=== PATIENT | male | born 1990 | race African-American/Black ===

== ENCOUNTER 2021-03-29 12:14 | Emergency (ER) | payer SELFPAY ==
[2021-03-29 12:24] VITALS: BP 119/74; PULSE 68; RESP 20; TEMP 36.6; O2SAT 98
--- NOTE | 2021-03-29 12:42 | ED.GENADULT ---
HPI - General Adult General Chief complaint: Medical Clearance Stated complaint: Ear Pain/Blood Pressure Problem Time Seen by Provider: 03/29/21 12:20 Source: patient Mode of arrival: ambulatory Limitations: no limitations History of Present Illness HPI narrative: 30 y/o AA male. PMHx none reported. Presents to [facility] today with acute complaints of RT side otalgia, worsening > the past 1 week. He reports associated [place] and elevated BP at home. No LOC, Focal weakness, chest pain, palpitations, dyspnea, edema. No N/V. He denies auditory loss or trauma. No additional acute c/o illness upon PE. Related Data Allergies Allergy/AdvReac Type Severity Reaction Status Date / Time peanut Allergy Unknown Rash Verified 03/29/21 12:34 Review of Systems Review of Systems: CONSTITUTIONAL: Denies fever, chills, sweats. EYES: Denies visual changes, redness, discharge. ENT: Denies rhinorrhea, congestion, sore throat. Positive RT otalgia. CARDIOVASCULAR: Denies chest pain, palpitations, edema. RESPIRATORY: Denies dyspnea, wheezing, cough GASTROINTESTINAL: Denies abdominal pain, nausea, vomiting, diarrhea. GENITOURINARY: Denies dysuria, hematuria, abnormal discharge SKIN: Denies rash or itching. MUSCULOSKELETAL: Denies acute back pain, joint pain, or myalgia. NEUROLOGIC: Denies numbness, or focal weakness. PSYCHIATRIC: Denies anxiety or depression. All systems reviewed & are unremarkable except as noted in HPI and below Exam Narrative: GENERAL: This is a well-nourished, well-developed adult, in no apparent distress. HEAD: normocephalic, atraumatic. EYES: PERRL. Sclera clear/white. EARS: External ears normal. RT auditory canal erythematous with bulging TM. Positive Tragus maneuver RT. No obstruction or TM perforation. No hearing deficits. LT normal. auditory canals clear and without drainage, TMs normal. NOSE: External nose normal. Positive Rhinorrhea, no obstruction, nares patent. THROAT: Mucous membranes moist, posterior pharynx clear. No exudates. NECK: Neck supple, non-tender without lymphadenopathy, masses or thyromegaly. CARDIOVASCULAR: Regular rate and rhythm without murmurs, gallops, or rubs. No edema. RESPIRATORY: Clear to auscultation. Breath sounds equal bilaterally. No wheezes, rales, or rhonchi. GASTROINTESTINAL: Abdomen soft, non-tender, nondistended. Bowel sounds are active. No guarding. SKIN: warm, intact with no suspicious lesions or rash, good texture and turgor. NEURO: Alert, active, and age appropriate. No focal neurologic deficits. Course Vital Signs Vital signs: Vital Signs Temperature 36.6 C 03/29/21 12:24 Pulse Rate 68 03/29/21 12:24 Respiratory Rate 20 03/29/21 12:24 Blood Pressure 119/74 03/29/21 12:24 Pulse Oximetry 98 03/29/21 12:24 Temperature 36.6 C 03/29/21 12:24 Pulse Rate 68 03/29/21 12:24 Respiratory Rate 20 03/29/21 12:24 Blood Pressure 119/74 03/29/21 12:24 Pulse Oximetry 98 03/29/21 12:24 Medical Decision Making MDM Narrative Medical decision making narrative: -OP POC, AVS, & Medication instructions reviewed. -No focal neurological deficits. -Advise Home BP Log TID X 2 weeks, as well as DASH diet and exercise regimen in regard to his concern for elevated BP at home. -PCP Referral and follow-up 1 week. May discuss additional care needs as deemed necessary at this time. -ER W/Emergent health status changes. Pt agrees. Differential Diagnosis Differential Diagnosis: Differential Diagnosis: Consideration of the following conditions may be warranted for the presenting problem, they are not final diagnoses: upper respiratory infection, otitis media, sinusitis, RSV viral infection, bronchitis, pharyngitis, Streptococcal sore throat, COVID-19, and other. Medical Records Medical records reviewed: Yes I reviewed the external patient's medical records. Vital Signs Vital Signs: Vital Signs Temperature 36.6 C 03/29/21 12:24 Pulse Rate 68
== END 2021-03-29 12:45 | disposition home or self-care (01) ==
PROVIDERS: Emergency Provider Nurse Practitioner Adult Health
DX: H66.91 Otitis media, unspecified, right ear (principal)
CPT/HCPCS: 99203; G0463

== ENCOUNTER 2023-07-14 18:28 | Emergency (ER) | payer SELFPAY ==
[2023-07-14 18:38] VITALS: BP 153/91; PULSE 74; RESP 16; TEMP 36.2; O2SAT 74
--- NOTE | 2023-07-14 18:44 | ED.GENADULT ---
HPI - General Adult General Chief complaint: Unspecified Stated complaint: blood pressure Time Seen by Provider: 07/14/23 18:44 Source: patient Mode of arrival: ambulatory Limitations: no limitations History of Present Illness HPI narrative: 32 yo M presents with c/o high BP. States he had headache today. his daughter is training to be nurse so checked his BP and told him it was elevated. Also reports hair bumps to munoz area for months . recently bought new esme to see if that would help. Does not have PCP. All systems reviewed and negative except as noted above. Related Data Allergies Allergy/AdvReac Type Severity Reaction Status Date / Time peanut Allergy Unknown Rash Verified 03/29/21 12:34 Review of Systems Review of Systems: CONSTITUTIONAL: Denies fever, chills, or sweats. EYES: Denies visual changes, redness, or discharge. ENT: Denies rhinorrhea, congestion, sore throat, or otalgia. CARDIOVASCULAR: Denies chest pain, palpitations, or edema. RESPIRATORY: Denies cough or dyspnea. GASTROINTESTINAL: Denies abdominal pain, nausea, vomiting, or diarrhea. GENITOURINARY: Denies dysuria or hematuria. SKIN: Denies rash or itching. Reports hair bumps MUSCULOSKELETAL: Denies back pain, joint pain, or myalgia. NEUROLOGIC: Denies headache, numbness, or weakness. PSYCHIATRIC: Denies anxiety or depression. All other systems reviewed are negative, except as documented in HPI. PMFSH Comments At time of signature, agree with nursing past medical, surgical, social and family history. There is no relevant family history pertinent to the presenting complaint. Exam Narrative: GENERAL: This is a well-nourished, well-developed patient, in no apparent distress. HEAD: normocephalic, atraumatic. EYES: PERRL. Sclera clear/white. Vision is grossly intact. EARS: External ears normal NOSE: External nose normal NECK: Neck supple, non-tender without lymphadenopathy, masses or thyromegaly. CARDIOVASCULAR: Regular rate and rhythm without murmurs, gallops, or rubs. RESPIRATORY: Clear to auscultation. Breath sounds equal bilaterally. No wheezes, rales, or rhonchi. SKIN: warm, Dry, intact with no suspicious lesions or rash, good texture and turgor. folliculitis to chin, neck cheeks (where ever covered with mun[place] hair) NEURO: awake, alert, and oriented to person, place and time. There were no obvious focal neurologic abnormalities. EXTREMITIES: No joint tenderness, effusion, or edema noted. Course Course Level of Care: Express Care Visit Vital Signs Vital signs: Vital Signs Temperature 36.2 C L 07/14/23 18:38 Pulse Rate 74 07/14/23 18:38 Respiratory Rate 16 07/14/23 18:38 Blood Pressure 153/91 H 07/14/23 18:38 Pulse Oximetry 74 L 07/14/23 18:38 Oxygen Delivery Room Air 07/14/23 18:38 Temperature 36.2 C L 07/14/23 18:38 Pulse Rate 74 07/14/23 18:38 Respiratory Rate 16 07/14/23 18:38 Blood Pressure 153/91 H 07/14/23 18:38 Pulse Oximetry 74 L 07/14/23 18:38 Oxygen Delivery Room Air 07/14/23 18:38 BP 142/90 manually checked by this HAND [employer] Medical Decision Making MDM Narrative Medical decision making narrative: BP 142/90 today. REcommend follow up with PCP for furhter evaluate. Will prescribed abx for folliculitis. Patient is aware of diagnosis, understands and agrees to treatment plan. Anticipatory guidance given. Patient agrees to follow-up as directed and is aware of reasons to seek care at the emergency department. Portions of this record may have been created with voice recognition software Vital Signs Vital Signs: Vital Signs Temperature 36.2 C L 07/14/23 18:38 Pulse Rate 74 07/14/23 18:38 Respiratory Rate 16 07/14/23 18:38 Blood Pressure 153/91 H 07/14/23 18:38 Pulse Oximetry 74 L 07/14/23 18:38 Oxygen Delivery Room Air 07/14/23 18:38 Temperature 36.2 C L 07/14/23 18:38 Pulse Rate 74 07/14/23 18:38 Respiratory Rate 16 07/14/23 18:38
== END 2023-07-14 19:04 | disposition home or self-care (01) ==
PROVIDERS: Emergency Provider Nurse Practitioner Family
DX: L73.9 Follicular disorder, unspecified (principal); L30.9 Dermatitis, unspecified; Z01.31 Encounter for examination of blood pressure with abnormal findings
CPT/HCPCS: 99213; G0463